=== PATIENT | male | born 1970 | race Caucasian/White ===

== ENCOUNTER 2016-05-15 11:29 | Day surgery (SDC) | payer OTHER ==
[2016-05-10 09:53] LABS: ABSOLUTE BASOPHILS # (AUTO) 0.1 10^3/uL (0.0-0.2); ABSOLUTE EOSINOPHILS # (AUTO) 0.1 10^3/uL (0.0-0.6); ABSOLUTE LYMPHOCYTES (AUTO) 1.7 10^3/uL (0.5-4.7); ABSOLUTE MONOCYTES (AUTO) 0.6 10^3/uL (0.1-1.4); ABSOLUTE NEUT (AUTO) 6.3 10^3/uL (1.7-8.2); BASOPHILS % (AUTO) 0.6 % (0-2); HEMOGLOBIN 15.2 g/dL (13.5-17.0); HGB HCT DIFFERENCE 0.6; LYMPHOCYTES % (AUTO) 19.4 % (13-45); MEAN CORPUSCULAR HGB CONC 33.7 g/dL (32.0-36.0); MEAN CORPUSCULAR VOLUME 83 fl (80-97); RED BLOOD COUNT 5.41 10^6/uL (4.35-5.55); RED CELL DISTRIBUTION WIDTH 15.1 % (11.5-14.0); WHITE BLOOD COUNT 8.7 10^3/uL (4.0-10.5)
[2016-05-10 09:56] LABS: PROTHROMBIN TIME 13.3 SEC (11.4-15.4)
[2016-05-10 09:57] LABS: APPEARANCE,URINE CLEAR; BILIRUBIN,URINE NEGATIVE (NEGATIVE); GLUCOSE, URINE NEGATIVE (NEGATIVE); KETONES,URINE NEGATIVE (NEGATIVE); LEUKOCYTE ESTERASE,URINE NEGATIVE (NEGATIVE); NITRITE,URINE NEGATIVE (NEGATIVE); PROTEIN,URINE NEGATIVE (NEGATIVE); URINE SPECIFIC GRAVITY 1.017; UROBILINOGEN,URINE NEGATIVE mg/dL (<2.0)
[2016-05-10 09:57] LABS: PARTIAL THROMBOPLASTIN TIME 27.9 SEC (23.5-35.8)
[~2016-05-15 11:29] MED LIST: CEFAZOLIN 1 GM/D5W RTU 1 GM/50 ML RTUPB IV PRN; DEXAMETHASONE SOD PHOSPHATE INJ 4 MG/1 ML VIAL ONE; KETOROLAC TROMETHAMINE 60 MG/2 ML SDV ONE; LACTATED RINGERS 1000 ML IV PRN; LIDOCAINE 0.5% INJ-PF (5 MG/ML) 50 ML SDV SUBCUT PRN; ONDANSETRON HCL INJ/PF 4 MG/2 ML SDV ONE
[2016-05-15] MEDS ORDERED: LIDOCAINE 1% INJ-PF (10 MG/ML) 30 ML SDV ONE (12:22)
[2016-05-15] MEDS ORDERED: SODIUM BICARBONATE 8.4% INJ 50 MEQ/50 ML DISP.SYRIN ONE (12:22)
[2016-05-15] MEDS ORDERED: BUPIVACAINE HCL 0.25% /EPINEPHRINE INJ/PF 30 ML SDV ONE (12:22)
[2016-05-15] MEDS ORDERED: MIDAZOLAM 2 MG/2 ML INJ ONE ×2 (13:58→13:59)
[2016-05-15] MEDS ORDERED: FENTANYL CITRATE INJ/PF 100 MCG/2 ML AMPUL ONE (13:58)
[2016-05-15] MEDS ORDERED: PROPOFOL INJ 200 MG/20 ML VIAL IV ONE (13:59)
[2016-05-15] MEDS ORDERED: FENTANYL CITRATE INJ/PF 100 MCG/2 ML AMPUL IV PRN ×3 (14:53)
[2016-05-15] MEDS ORDERED: MORPHINE SULFATE 10 MG/ML INJ IV PRN (14:53)
[2016-05-15] MEDS ORDERED: DIPHENHYDRAMINE HCL 50 MG/ML VIAL IV PRN (14:53)
[2016-05-15] MEDS ORDERED: MEPERIDINE HCL/PF INJ 25 MG/1 ML DISP.SYRIN IV PRN (14:53)
[2016-05-15] MEDS ORDERED: PROMETHAZINE HCL INJ 25 MG/1 ML VIAL IV PRN ×2 (14:53)
[2016-05-15] MEDS ORDERED: OXYCODONE-ACETAMINOPHEN 5-325 MG TABLET PO PRN (15:22)
--- NOTE | 2016-05-15 15:33 | OPERATIVE REPORT E ---
Operative Report NAME: YISEL HENDERSON : 1970 AGE: 46Y DATE OF SURGERY: 05/15/2016 ROOM: PREOPERATIVE DIAGNOSIS: Nonfunctioning implanted intrathecal drug delivery system pump. POSTOPERATIVE DIAGNOSIS: Nonfunctioning implanted intrathecal drug delivery system pump. OPERATIVE PROCEDURE: Removal of nonfunctioning intrathecal pump. SURGEON: MARTIN RODRIGUEZ M.D. PAINT PROCESS ENGINEER: Dr. Shamar Ballard ANESTHESIA: MAC. BLOOD LOSS: Minimal/10 mL. SPECIMEN REMOVED: Intrathecal pump sent to [facility] for sterilization to render to the patient's fraud representative. PROCEDURE NOTE: After obtaining informed consent and advising patient of the risks and benefits, including intrathecal leakage from the residual remaining catheter left in place, bleeding, infection, allergic reaction and , he was taken to the operating room. He was placed comfortably in the supine position. MAC anesthesia was administered and monitors were applied per anesthesia. He was then prepped with chlorhexidine and allowed approximately 3-minute drying time prior to draping. The pump was readily identified in the left upper quadrant. The skin was anesthetized with 1% lidocaine with bicarbonate followed by 0.25% bupivacaine. Sharp and blunt dissection was then performed down to the pump. Hemostasis was obtained with electrocautery as necessary. The pump was readily identified and removed from the pocket. The catheter system was identified and freed from their surrounding tissue. As planned, the catheter was tied with 3 separate 0 Mersilene ties to diminish the probability or likelihood of cerebral spinal fluid leakage through the catheter. It should be noted that an attempt was made to draw from the catheters spinal fluid prior to cutting off the adapter connector. No CSF was identified or able to be withdrawn from the catheter indicating probable catheter occlusion or obstruction. Nevertheless, the catheter was tied at the 3 locations to diminish the probability of this recurring in the future. The wound was then copiously irrigated and the catheter was tucked neatly into the pocket. The capsule of the pocket was closed with a 3-0 running locking suture. The subcutaneous tissue was then closed in the same fashion using a 3-0 locking suture again with Polysorb. The skin was then stapled and came together quite nicely. Sterile dressing was then placed upon this. The patient was then taken to the PACU for further postoperative care and monitoring. DICTATING PHYSICIAN: MARTIN RODRIGUEZ M.D. [id number] PHY#: [id number] ID: [id number] JOB#: [id number] ACCT: [id number] cc:MARTIN RODRIGUEZ M.D. >
[2016-05-15] MEDS ORDERED: CEFAZOLIN INJ 1 GM VIAL ONE (15:41)
[2016-05-15 16:56] VITALS: BP 139/87
== END 2016-05-15 16:40 | disposition home or self-care (01) ==
LOC: OROUT 11:29
PROVIDERS: ATTEND Pain Medicine Interventional Pain Medicine
PROC: 0JPT0VZ Removal of Infusion Pump from Trunk Subcutaneous Tissue and Fascia, Open Approach (ICD-10-PCS; principal; 2016-05-15 14:00)
DX: T85.615A Breakdown (mechanical) of other nervous system device, implant or graft, initial encounter (principal); Y83.8 Other surgical procedures as the cause of abnormal reaction of the patient, or of later complication, without mention of misadventure at the time of the procedure; G89.4 Chronic pain syndrome; F17.210 Nicotine dependence, cigarettes, uncomplicated; Z88.5 Allergy status to narcotic agent
CPT/HCPCS: 36415; 85025; 85610; 85730; 81001; 62365; J2250; J3490 ×3; J0690 ×2; J1100; J1885; J3010; J2405; J2704; 300

== ENCOUNTER → 2017-05-30 | Outpatient (CLI) | payer OTHER ==
[2017-05-30 09:50] LABS: ABSOLUTE EOSINOPHILS # (AUTO) 0.3 10^3/uL (0.0-0.6); ABSOLUTE LYMPHOCYTES (AUTO) 2.1 10^3/uL (0.5-4.7); ABSOLUTE MONOCYTES (AUTO) 0.6 10^3/uL (0.1-1.4); ABSOLUTE NEUT (AUTO) 4.6 10^3/uL (1.7-8.2); BASOPHILS % (AUTO) 0.6 % (0-2); EOSINOPHILS % (AUTO) 3.4 % (0-6); HEMATOCRIT 47.5 % (37.9-51.0); HEMOGLOBIN 16.2 g/dL (13.5-17.0); LYMPHOCYTES % (AUTO) 27.1 % (13-45); MEAN CORPUSCULAR HEMOGLOBIN 29.6 pg (27.0-33.4); MEAN CORPUSCULAR HGB CONC 34.1 g/dL (32.0-36.0); MEAN CORPUSCULAR VOLUME 87 fl (80-97); MONOCYTES % (AUTO) 8.3 % (3-13); PLATELET COUNT 184 10^3/uL (150-450); RED BLOOD COUNT 5.47 10^6/uL (4.35-5.55); RED CELL DISTRIBUTION WIDTH 13.7 % (11.5-14.0); SEGMENTED NEUTROPHILS % (AUTO) 60.6 % (42-78); TOTAL CELLS COUNTED % (AUTO) 100 %; WHITE BLOOD COUNT 7.6 10^3/uL (4.0-10.5)
[2017-05-30 09:54] LABS: INTERNATIONAL RATION (INR) 0.95; PARTIAL THROMBOPLASTIN TIME 28.2 SEC (23.5-35.8); PROTHROMBIN TIME 13.4 SEC (11.4-15.4)
[2017-05-30 09:55] LABS: APPEARANCE,URINE CLEAR; BILIRUBIN,URINE SMALL (NEGATIVE); COLOR,URINE YELLOW; GLUCOSE, URINE NEGATIVE (NEGATIVE); KETONES,URINE NEGATIVE (NEGATIVE); LEUKOCYTE ESTERASE,URINE NEGATIVE (NEGATIVE); NITRITE,URINE NEGATIVE (NEGATIVE); PROTEIN,URINE NEGATIVE (NEGATIVE); URINE SPECIFIC GRAVITY 1.028; UROBILINOGEN,URINE NEGATIVE mg/dL (<2.0)
== END ==
LOC: OD 08:35
PROVIDERS: ATTEND Pain Medicine Interventional Pain Medicine
DX: Z51.81 Encounter for therapeutic drug level monitoring (principal); Z79.01 Long term (current) use of anticoagulants
CPT/HCPCS: 36415; 81001; 85025; 85610; 85730

== ENCOUNTER 2017-07-23 06:06 | Day surgery (SDC) | payer OTHER ==
--- NOTE | 2017-07-16 10:11 | RADIOLOGY REPORT (SQ) ---
EXAM DESCRIPTION: CHEST PA/LATERAL COMPLETED DATE/TIME: 07/16/2017 9:51 am REASON FOR STUDY: PRE-OP COMPARISON: None. NUMBER OF VIEWS: Two view. TECHNIQUE: Frontal and lateral radiographic views of the chest acquired. LIMITATIONS: None. FINDINGS: LUNGS AND PLEURA: No opacities, masses or pneumothorax. No pleural effusion. MEDIASTINUM AND HILAR STRUCTURES: No masses or contour abnormalities. HEART AND VASCULATURE: Heart normal size. No evidence for failure. BONY STRUCTURES: No acute findings. HARDWARE: None. OTHER: No other significant finding. IMPRESSION: NO SIGNIFICANT RADIOGRAPHIC FINDING IN THE CHEST. TECHNICAL DOCUMENTATION: JOB ID: [id number] [employer]- All Rights Reserved Reading location - IP/workstation name: [email or web address]
[2017-07-16 10:16] LABS: HEMATOCRIT 45.4 % (37.9-51.0); HEMOGLOBIN 15.4 g/dL (13.5-17.0); MEAN CORPUSCULAR HEMOGLOBIN 29.7 pg (27.0-33.4); MEAN CORPUSCULAR HGB CONC 33.9 g/dL (32.0-36.0); MEAN CORPUSCULAR VOLUME 88 fl (80-97); PLATELET COUNT 165 10^3/uL (150-450); RED BLOOD COUNT 5.18 10^6/uL (4.35-5.55); RED CELL DISTRIBUTION WIDTH 13.6 % (11.5-14.0); WHITE BLOOD COUNT 6.8 10^3/uL (4.0-10.5)
[2017-07-16 10:19] LABS: APPEARANCE,URINE CLEAR; BILIRUBIN,URINE NEGATIVE (NEGATIVE); COLOR,URINE YELLOW; GLUCOSE, URINE NEGATIVE (NEGATIVE); KETONES,URINE NEGATIVE (NEGATIVE); LEUKOCYTE ESTERASE,URINE NEGATIVE (NEGATIVE); NITRITE,URINE NEGATIVE (NEGATIVE); PROTEIN,URINE NEGATIVE (NEGATIVE); URINE SPECIFIC GRAVITY 1.019; UROBILINOGEN,URINE NEGATIVE mg/dL (<2.0)
[2017-07-16 10:23] LABS: INTERNATIONAL RATION (INR) 0.97; PROTHROMBIN TIME 13.4 SEC (11.4-15.4)
[2017-07-16 10:24] LABS: PARTIAL THROMBOPLASTIN TIME 29.1 SEC (23.5-35.8)
--- NOTE | 2017-07-16 12:34 | EKG REPORT ---
SEVERITY:- NORMAL ECG - SINUS RHYTHM : Confirmed by: Hunter Garay MD 16-Jul-2017 12:33:59
[~2017-07-23 06:06] MED LIST changes: +BUPIVACAINE HCL 0.25% /EPINEPHRINE INJ/PF 30 ML SDV ONE; -DEXAMETHASONE SOD PHOSPHATE INJ 4 MG/1 ML VIAL ONE; -KETOROLAC TROMETHAMINE 60 MG/2 ML SDV ONE; +LIDOCAINE 1% INJ-PF (10 MG/ML) 30 ML SDV ONE; -ONDANSETRON HCL INJ/PF 4 MG/2 ML SDV ONE; +SODIUM BICARBONATE 8.4% INJ 50 MEQ/50 ML DISP.SYRIN ONE
[2017-07-23] MEDS ORDERED: LIDOCAINE 2% INJ-PF (20 MG/ML) 10 ML AMPUL ONE (06:27)
[2017-07-23] MEDS ORDERED: KETAMINE HCL INJ 500 MG/10 ML VIAL ONE (06:28)
[2017-07-23] MEDS ORDERED: FENTANYL CITRATE INJ/PF 100 MCG/2 ML AMPUL ONE (06:28)
[2017-07-23] MEDS ORDERED: DEXAMETHASONE SOD PHOSPHATE INJ 4 MG/1 ML VIAL ONE (06:28)
[2017-07-23] MEDS ORDERED: MIDAZOLAM 2 MG/2 ML INJ ONE (06:28)
[2017-07-23] MEDS ORDERED: ONDANSETRON HCL INJ/PF 4 MG/2 ML SDV ONE (06:28)
[2017-07-23] MEDS ORDERED: PROPOFOL INJ 200 MG/20 ML VIAL IV ONE (06:29)
[2017-07-23] MEDS ORDERED: LIDOCAINE 1% INJ-PF (10 MG/ML) 30 ML SDV ONE (07:35)
[2017-07-23] MEDS ORDERED: DIPHENHYDRAMINE HCL 50 MG/ML VIAL IV PRN (07:37)
[2017-07-23] MEDS ORDERED: ONDANSETRON HCL INJ/PF 4 MG/2 ML SDV IV PRN (07:37)
[2017-07-23] MEDS ORDERED: PROMETHAZINE HCL INJ 25 MG/1 ML VIAL IV PRN ×2 (07:37)
[2017-07-23] MEDS ORDERED: FENTANYL CITRATE INJ/PF 100 MCG/2 ML AMPUL IV PRN ×3 (07:37)
[2017-07-23] MEDS ORDERED: MEPERIDINE HCL/PF INJ 25 MG/1 ML DISP.SYRIN IV PRN (07:37)
[2017-07-23] MEDS ORDERED: MORPHINE SULFATE 10 MG/ML INJ IV PRN (07:37)
[2017-07-23] MEDS ORDERED: CEFAZOLIN INJ 1 GM VIAL ONE ×2 (07:57→10:25)
[2017-07-23] MEDS ORDERED: BUPIVACAINE HCL 0.25% /EPINEPHRINE INJ/PF 30 ML SDV ONE (09:46)
[2017-07-23] MEDS ORDERED: OXYCODONE-ACETAMINOPHEN 5-325 MG TABLET PO PRN (10:12)
--- NOTE | 2017-07-23 11:00 | OPERATIVE REPORT E ---
Operative Report NAME: YISEL HENDERSON : 1970 AGE: 47Y DATE OF SURGERY: 07/23/2017 ROOM: PREOPERATIVE DIAGNOSIS: Post-laminectomy syndrome with intractable back and lower extremity pain. POSTOPERATIVE DIAGNOSIS: Post-laminectomy syndrome with intractable back and lower extremity pain. OPERATIVE PROCEDURE: Surgical implantation of right and left spinal cord stimulating leads using [employer] and [employer] leads and implantation of battery with programming and fluoroscopy for needle and wire placement. SURGEON: MARTIN RODRIGUEZ M.D. SUGAR CANE PLANTER MACHINE OPERATOR: LESLIE BOWLING M.D. ANESTHESIA: MAC SPECIMENS REMOVED: None. BLOOD LOSS: 10 mL. COMPLICATIONS: None. INDICATIONS: Intractable pain with successful outpatient spinal cord stimulation trial. PROCEDURE NOTE: After obtaining informed consent and advising the patient of the risks and benefits, including serious neurological injury, bleeding, infection, paralysis, allergic reaction, failure to provide pain relief, and , he was taken to the operating room and placed comfortably in the prone position. MAC anesthesia was administered. He was prepped twice with chlorhexidine with the appropriate drying time, followed by draping. He was evaluated under fluoroscopy and suitable entrance sites were identified, correlating to the lower lumbar and mid lumbar spine region and the implantation sites for the trial leads. The pocket site for the generator had also been predetermined over the right gluteal region. Both surgical sites were anesthetized with 1% lidocaine with bicarb followed by bupivacaine 0.25% with epinephrine. Surgical dissection was then performed in both regions to provide accessible working room and a suitable pocket. Hemostasis was obtained with electrocautery as necessary. A 2-inch Trish was placed into the surgical wound in the midline. The paraspinal muscles were anesthetized with 1% lidocaine using a spinal needle down to the T12-L1 interspace. The introducer needles were placed beginning on the right and then the left using a loss of resistance to saline technique under fluoroscopy. No heme, cerebrospinal fluid, or paresthesias were noted. The 16 *------* electrodes were then advanced through each of the needles up to the top of T8 region. A trial of stimulation was then initiated and was satisfactory with pain sites being covered more than adequately with both electrodes. The pursestrings were placed around each of the introducers followed by distal stay anchor sutures. Beginning on the left, the split introducer trocar was removed without difficulty with the leads remaining in place. The pursestring was secured followed by securing of the anchor and removal of the stylette and then tightening of the hex nut. This was repeated on the right side and again no movement of the electrode was noted. Both wounds were then copiously irrigated with Betadine-containing irrigation solution. The leads were then tunneled after anesthetizing the subcutaneous tissue with 1% lidocaine to the pulse generator pocket. The electrodes were connected to the pulse generator, impedance was checked and was satisfactory for all 32 electrodes. Again, both wounds were irrigated. Hemostasis was inspected, treated with electrocautery as necessary. The wounds were then closed with inverted vertical mattress sutures using 3-0 Polysorb, 2 layers followed by mitch were used in the midline incision and 1 layer followed by mitch were used over the pulse generator region. Dermabond tape followed by cement was placed over this. When this was dry, Telfa and Tegaderm were placed over this. The patient was then taken to the PACU for further postoperative care and monitoring. DICTATING PHYSICIAN: MARTIN RODRIGUEZ M.D. [id number] PHY#: [id number] ID: [id number] JOB#: [id number] ACCT: [id number] cc:MARTIN RORDIGUEZ M.D. >
[2017-07-23 12:08] VITALS: BP 131/74
--- NOTE | 2017-07-23 15:55 | RADIOLOGY REPORT (SQ) ---
EXAM DESCRIPTION: NO CHG FLUORO; THORACOLUMBAR SPINE AP/LAT COMPLETED DATE/TIME: 07/23/2017 2:43 pm REASON FOR STUDY: SPINAL STIMULATOR ASSISTED WITH FLUOROSCOPY IN OR G89.4 CHRONIC PAIN SYNDROME COMPARISON: None. FLUOROSCOPY TIME: 7 minutes 7 seconds 25 images saved to PACS. TECHNIQUE: Intra-operative images acquired during surgical procedure to evaluate progress. NUMBER OF IMAGES: 25 LIMITATIONS: None. FINDINGS: Placement of 2 neural stimulators. Mid thoracic. IMPRESSION: IMAGE(S) OBTAINED DURING PROCEDURE. COMMENT: Quality ID 145: Final reports for procedures using fluoroscopy that document radiation exp osure indices, or exposure time and number of fluorographic images (if radiation exposure indices are not available) Please consult full operative report of the attending physician for description of the procedure. TECHNICAL DOCUMENTATION: JOB ID: [id number] [employer]- All Rights Reserved Reading location - IP/workstation name: [email or web address]
--- NOTE | 2017-07-23 15:55 | RADIOLOGY REPORT (SQ) ---
EXAM DESCRIPTION: NO CHG FLUORO; THORACOLUMBAR SPINE AP/LAT COMPLETED DATE/TIME: 07/23/2017 2:43 pm REASON FOR STUDY: SPINAL STIMULATOR ASSISTED WITH FLUOROSCOPY IN OR G89.4 CHRONIC PAIN SYNDROME COMPARISON: None. FLUOROSCOPY TIME: 7 minutes 7 seconds 25 images saved to PACS. TECHNIQUE: Intra-operative images acquired during surgical procedure to evaluate progress. NUMBER OF IMAGES: 25 LIMITATIONS: None. FINDINGS: Placement of 2 neural stimulators. Mid thoracic. IMPRESSION: IMAGE(S) OBTAINED DURING PROCEDURE. COMMENT: Quality ID 145: Final reports for procedures using fluoroscopy that document radiation exp osure indices, or exposure time and number of fluorographic images (if radiation exposure indices are not available) Please consult full operative report of the attending physician for description of the procedure. TECHNICAL DOCUMENTATION: JOB ID: [id number] [employer]- All Rights Reserved Reading location - IP/workstation name: [email or web address]
== END 2017-07-23 12:00 | disposition home or self-care (01) ==
LOC: OROUT 06:06
PROVIDERS: ATTEND Pain Medicine Interventional Pain Medicine
DX: M54.17 Radiculopathy, lumbosacral region (principal); M96.1 Postlaminectomy syndrome, not elsewhere classified; G89.4 Chronic pain syndrome; Z88.5 Allergy status to narcotic agent; Z79.899 Other long term (current) drug therapy
CPT/HCPCS: 93005; 36415; 85027; 85610; 85730; 81001; 71046; 72080; 93010; 63685; 63650; J2250; J3490 ×4; J0690 ×2; J1100; J3010; J2405; J2704; C1778; C1820; 1936

== ENCOUNTER 2018-07-29 11:31 | Day surgery (SDC) | payer OTHER ==
[~2018-07-29 11:31] MED LIST changes: -CEFAZOLIN 1 GM/D5W RTU 1 GM/50 ML RTUPB IV PRN; -LACTATED RINGERS 1000 ML IV PRN; -LIDOCAINE 0.5% INJ-PF (5 MG/ML) 50 ML SDV SUBCUT PRN; +SODIUM BICARBONATE 4.2% INJ (2.5 MEQ/5 ML) VIAL ONE; -SODIUM BICARBONATE 8.4% INJ 50 MEQ/50 ML DISP.SYRIN ONE
[2018-07-29] MEDS ORDERED: CEFAZOLIN 1 GM/D5W RTU 1 GM/50 ML RTUPB IV ONE (13:24)
[2018-07-29] MEDS ORDERED: FENTANYL CITRATE INJ/PF 100 MCG/2 ML AMPUL ONE (14:17)
[2018-07-29] MEDS ORDERED: KETAMINE HCL INJ 500 MG/10 ML VIAL ONE ×2 (14:17→17:45)
[2018-07-29] MEDS ORDERED: LIDOCAINE 2% INJ-PF (100 MG/5 ML) SYRINGE ONE (14:17)
[2018-07-29] MEDS ORDERED: MIDAZOLAM 2 MG/2 ML INJ ONE (14:18)
[2018-07-29] MEDS ORDERED: ONDANSETRON HCL INJ/PF 4 MG/2 ML SDV ONE (14:18)
[2018-07-29] MEDS ORDERED: PROPOFOL INJ 200 MG/20 ML VIAL IV ONE ×2 (14:18→17:45)
[2018-07-29] MEDS: CEFAZOLIN 1 GM/D5W RTU 1 GM/50 ML RTUPB IV PRN ×2 (14:45→15:37)
[2018-07-29] MEDS ORDERED: DIPHENHYDRAMINE HCL 50 MG/ML VIAL IV PRN ×2 (15:29→20:04)
[2018-07-29] MEDS ORDERED: MEPERIDINE HCL/PF INJ 25 MG/1 ML DISP.SYRIN IV PRN ×2 (15:29→20:04)
[2018-07-29] MEDS ORDERED: FENTANYL CITRATE INJ/PF 100 MCG/2 ML AMPUL IV PRN ×3 (15:29)
[2018-07-29] MEDS ORDERED: PROMETHAZINE HCL INJ 25 MG/1 ML VIAL IV PRN ×4 (15:29→20:04)
[2018-07-29] MEDS ORDERED: DEXMEDETOMIDINE INJ 80 MCG/20 ML VIAL IV ONE (17:20)
[2018-07-29] MEDS ORDERED: ACETAMINOPHEN 1,000 MG/100 ML RTUPB IV ONE (18:51)
[2018-07-29] MEDS ORDERED: KETOROLAC TROMETHAMINE INJ/PF 30 MG/1 ML SDV ONE (18:51)
[2018-07-29] MEDS ORDERED: HYDROMORPHONE HCL INJ/PF 2 MG/ML AMPULE ONE (18:52)
[2018-07-29] MEDS ORDERED: ONDANSETRON HCL INJ/PF 4 MG/2 ML SDV IV PRN ×2 (20:04→20:07)
[2018-07-29] MEDS ORDERED: OXYCODONE HCL IR 5 MG TABLET PO PRN (20:06)
[2018-07-29] MEDS ORDERED: OXYCODONE-ACETAMINOPHEN 5-325 MG TABLET PO PRN (20:06)
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
[2018-07-29 21:08] VITALS: BP 138/88
--- NOTE | 2018-07-30 08:43 | RADIOLOGY REPORT (SQ) ---
EXAM DESCRIPTION: T SPINE AP/LAT COMPLETED DATE/TIME: 07/29/2018 7:30 pm REASON FOR STUDY: SPINAL CORD STIMULATOR M54.17 RADICULOPATHY, LUMBOSACRAL REGION COMPARISON: None. FLUOROSCOPY TIME: 15.4 minutes Spot images saved to PACS. TECHNIQUE: Intra-operative images acquired during surgical procedure to evaluate progress. NUMBER OF IMAGES: 6 LIMITATIONS: None. FINDINGS: Fluoroscopy was provided for intraoperative procedure. Please refer to the operative repo rt for further discussion. IMPRESSION: IMAGE(S) OBTAINED DURING PROCEDURE. COMMENT: Quality ID 145: Final reports for procedures using fluoroscopy that document radiation exp osure indices, or exposure time and number of fluorographic images (if radiation exposure indices are not available) Please consult full operative report of the attending physician for description of the procedure. TECHNICAL DOCUMENTATION: JOB ID: [id number] [employer]- All Rights Reserved Reading location - IP/workstation name: [email or web address]
--- NOTE | 2018-07-30 08:58 | RADIOLOGY REPORT (SQ) ---
EXAM DESCRIPTION: NO CHG FLUORO COMPLETE DATE/TIME: 07/29/2018 7:25 pm REASON FOR STUDY: SPINAL CORD STIMULATOR M54.17 RADICULOPATHY, LUMBOSACRAL REGION FINDINGS: Please see combined report for performance of procedure and radiologic supervision and int erpretation. IMPRESSION: Please see combined report for performance of procedure and radiologic supervision and i nterpretation. Reading location - IP/workstation name: [email or web address]
== END 2018-07-29 21:00 | disposition home or self-care (01) ==
LOC: OROUT 11:31
PROVIDERS: ATTEND Pain Medicine Interventional Pain Medicine
DX: T85.192A Other mechanical complication of implanted electronic neurostimulator of spinal cord electrode (lead), initial encounter (principal); Y83.8 Other surgical procedures as the cause of abnormal reaction of the patient, or of later complication, without mention of misadventure at the time of the procedure; M54.17 Radiculopathy, lumbosacral region; M96.1 Postlaminectomy syndrome, not elsewhere classified; M47.897 Other spondylosis, lumbosacral region; G89.4 Chronic pain syndrome; M79.2 Neuralgia and neuritis, unspecified; M47.816 Spondylosis without myelopathy or radiculopathy, lumbar region; M79.10 Myalgia, unspecified site; I10 Essential (primary) hypertension; I49.9 Cardiac arrhythmia, unspecified; E66.9 Obesity, unspecified; Z68.39 Body mass index [BMI] 39.0-39.9, adult; G47.33 Obstructive sleep apnea (adult) (pediatric); Z79.899 Other long term (current) drug therapy; Z01.812 Encounter for preprocedural laboratory examination
CPT/HCPCS: 72070; 63663; C1778; J2250; J3490 ×5; J0690; J3010; J2001; J1885; J1170; J2405; J2704; J0131; 300